=== PATIENT | female | born 1970 | race Asian ===

== ENCOUNTER → 2020-04-10 | Outpatient (CLI) | payer OTHER ==
--- NOTE | 2020-04-10 09:55 | RAD ---
EXAM: AP and lateral views of the lumbar spine DATE: 04/10/2020 12:00 AM INDICATION: Reason: BACK PAIN, DISABILITY DETERMINATION. / Spl. Instructions: / History: COMPARISON: No Prior FINDINGS: 5 nonrib-bearing lumbar-type vertebral bodies. Vertebral body heights are preserved. Disc heights are preserved. Mild facet degenerative change L4-5, L5-S1. No spondylolisthesis. Moderate colonic stool content. IMPRESSION: No acute fracture or subluxation. Electronically signed by: Raghu Strong MD (04/10/2020 9:52 AM) [id number]
--- NOTE | 2020-04-10 09:58 | RAD ---
EXAM: Views Right Shoulder DATE: 04/10/2020 12:00 AM INDICATION: Reason: LOWER BACK PAIN. RIGHT SHOULDER PAIN. / Spl. Instructions: / History: COMPARISON: No Prior FINDINGS: There is no evidence for acute fracture or dislocation. AC joint is congruent. Trace AC joint degenerative changes are seen. Humeral head is not high riding. IMPRESSION: 1. No acute fracture or dislocation. Electronically signed by: Raghu Strong MD (04/10/2020 9:55 AM) [id number]
== END ==
LOC: RAD 09:02
PROVIDERS: ATTEND Anesthesiology Pain Medicine
DX: M47.817 Spondylosis without myelopathy or radiculopathy, lumbosacral region (principal); M25.511 Pain in right shoulder
CPT/HCPCS: 72100; 73030